=== PATIENT | female | born 2000 | race Caucasian/White ===

== ENCOUNTER → 2020-07-13 | Outpatient (CLI) | payer MEDICAID ==
[2020-07-13 12:34] LABS: BASOPHILS % (AUTO) 0 % (0-10); EOSINOPHILS # (AUTO) 0.1 10^3/uL (0.0-0.3); EOSINOPHILS % (AUTO) 1 % (0-10); HEMATOCRIT 35 % (35-52); HEMOGLOBIN 11.5 g/dL (11.5-16.0); LYMPHOCYTES # (AUTO) 1.6 10^3/uL (1.0-4.0); LYMPHOCYTES % (AUTO) 13 % (12-44); MEAN CORPUSCULAR HEMOGLOBIN 28 pg (25-34); MEAN CORPUSCULAR HGB CONC 33 g/dL (32-36); MEAN CORPUSCULAR VOLUME 84 fL (80-99); MEAN PLATELET VOLUME 12.2 fL (9.0-12.2); MONOCYTES # (AUTO) 0.6 10^3/uL (0.0-1.0); MONOCYTES % (AUTO) 5 % (0-12); NEUTROPHILS # (AUTO) 9.9 10^3/uL (1.8-7.8); NEUTROPHILS % (AUTO) 80 % (42-75); PLATELET COUNT 192 10^3/uL (130-400); WHITE BLOOD COUNT 12.4 10^3/uL (4.3-11.0)
[2020-07-13 12:53] LABS: ALANINE AMINOTRANSFERASE 7 U/L (0-55); ALBUMIN 3.3 GM/DL (3.2-4.5); ALKALINE PHOSPHATASE 150 U/L (40-136); BILIRUBIN,TOTAL 0.2 MG/DL (0.1-1.0); BUN/CREATININE RATIO 12; CALCIUM 8.8 MG/DL (8.5-10.1); CARBON DIOXIDE 18 MMOL/L (21-32); CHLORIDE 109 MMOL/L (98-107); CREATININE SERUM 0.67 MG/DL (0.60-1.30); GFR ESTIMATED > 60; GLUCOSE 111 MG/DL (70-105); POTASSIUM 3.8 MMOL/L (3.6-5.0); SODIUM 138 MMOL/L (135-145); TOTAL PROTEIN 6.4 GM/DL (6.4-8.2); URIC ACID 5.4 MG/DL (2.6-7.2)
== END ==
LOC: LAB 12:06
PROVIDERS: ATTEND Family Medicine
DX: O16.3 Unspecified maternal hypertension, third trimester (principal); Z3A.00 Weeks of gestation of pregnancy not specified
CPT/HCPCS: 36415; 80053; 82570; 83615; 84156; 84550; 85025

== ENCOUNTER → 2020-07-17 | Outpatient (CLI) | payer MEDICAID ==
[2020-07-17 12:43] LABS: BASOPHILS % (AUTO) 0 % (0-10); EOSINOPHILS # (AUTO) 0.2 10^3/uL (0.0-0.3); EOSINOPHILS % (AUTO) 1 % (0-10); HEMATOCRIT 34 % (35-52); LYMPHOCYTES % (AUTO) 16 % (12-44); MEAN CORPUSCULAR HEMOGLOBIN 27 pg (25-34); MEAN CORPUSCULAR HGB CONC 32 g/dL (32-36); MEAN CORPUSCULAR VOLUME 84 fL (80-99); MEAN PLATELET VOLUME 12.4 fL (9.0-12.2); MONOCYTES # (AUTO) 0.6 10^3/uL (0.0-1.0); MONOCYTES % (AUTO) 5 % (0-12); NEUTROPHILS # (AUTO) 9.6 10^3/uL (1.8-7.8); NEUTROPHILS % (AUTO) 77 % (42-75); PLATELET COUNT 218 10^3/uL (130-400); WHITE BLOOD COUNT 12.5 10^3/uL (4.3-11.0)
[2020-07-17 13:10] LABS: ALANINE AMINOTRANSFERASE 10 U/L (0-55); ALBUMIN 3.3 GM/DL (3.2-4.5); ALKALINE PHOSPHATASE 165 U/L (40-136); BILIRUBIN,TOTAL 0.3 MG/DL (0.1-1.0); BUN/CREATININE RATIO 12; CALCIUM 8.6 MG/DL (8.5-10.1); CARBON DIOXIDE 19 MMOL/L (21-32); CHLORIDE 107 MMOL/L (98-107); CREATININE SERUM 0.69 MG/DL (0.60-1.30); GFR ESTIMATED > 60; GLUCOSE 109 MG/DL (70-105); POTASSIUM 3.8 MMOL/L (3.6-5.0); SODIUM 135 MMOL/L (135-145); TOTAL PROTEIN 6.1 GM/DL (6.4-8.2); URIC ACID 5.3 MG/DL (2.6-7.2)
== END ==
LOC: LAB 12:13
PROVIDERS: ATTEND Family Medicine
DX: O16.3 Unspecified maternal hypertension, third trimester (principal); Z3A.00 Weeks of gestation of pregnancy not specified
CPT/HCPCS: 36415; 80053; 82570; 83615; 84156; 84550; 85025

== ENCOUNTER 2020-07-23 19:00 | Inpatient (IN) | payer OTHER, MEDICAID ==
[~2020-07-23] VITALS: Ht 172 cm; Wt 116.6 kg
[2020-07-23] MEDS ORDERED: AMPICILLIN FOR IV USE 2,000 MG in WATER (STERILE) FOR INJECTION 14.8 ML IV SCH (19:11)
[2020-07-23] MEDS ORDERED: MINERAL OIL CONCENTRATE 99.9% 15 ML UDC TOP PRN (19:15)
[2020-07-23] MEDS ORDERED: LACTATED RINGERS 1,000 ML IV SCH (19:15)
[2020-07-23] MEDS ORDERED: TERBUTALINE INJ 1 MG/ML (BRETHINE) AMP SC PRN (19:15)
[2020-07-23 19:30] VITALS: BP 137/64
[2020-07-23 20:03] LABS: BILIRUBIN,URINE NEGATIVE (NEGATIVE); CLARITY,URINE SL CLOUDY; COLOR,URINE AMBER; GLUCOSE, URINE (UA) NEGATIVE (NEGATIVE); KETONES,URINE TRACE (NEGATIVE); LEUKOCYTE ESTERASE ,URINE NEGATIVE (NEGATIVE); NITRITE,URINE NEGATIVE (NEGATIVE); PROTEIN,URINE 1+ (NEGATIVE)
[2020-07-23 20:04] LABS: BASOPHILS # (AUTO) 0.1 10^3/uL (0.0-0.1); BASOPHILS % (AUTO) 0 % (0-10); EOSINOPHILS # (AUTO) 0.2 10^3/uL (0.0-0.3); EOSINOPHILS % (AUTO) 1 % (0-10); HEMATOCRIT 33 % (35-52); HEMOGLOBIN 10.5 g/dL (11.5-16.0); LYMPHOCYTES # (AUTO) 2.3 10^3/uL (1.0-4.0); LYMPHOCYTES % (AUTO) 18 % (12-44); MEAN CORPUSCULAR HEMOGLOBIN 27 pg (25-34); MEAN CORPUSCULAR HGB CONC 32 g/dL (32-36); MEAN CORPUSCULAR VOLUME 83 fL (80-99); MEAN PLATELET VOLUME 12.1 fL (9.0-12.2); MONOCYTES # (AUTO) 0.7 10^3/uL (0.0-1.0); MONOCYTES % (AUTO) 5 % (0-12); NEUTROPHILS # (AUTO) 9.5 10^3/uL (1.8-7.8); NEUTROPHILS % (AUTO) 75 % (42-75); PLATELET COUNT 198 10^3/uL (130-400); WHITE BLOOD COUNT 12.8 10^3/uL (4.3-11.0)
[2020-07-23 20:27] LABS: ALANINE AMINOTRANSFERASE 10 U/L (0-55); ALBUMIN 3.2 GM/DL (3.2-4.5); ALKALINE PHOSPHATASE 169 U/L (40-136); BILIRUBIN,TOTAL 0.4 MG/DL (0.1-1.0); BUN/CREATININE RATIO 14; CALCIUM 8.5 MG/DL (8.5-10.1); CARBON DIOXIDE 19 MMOL/L (21-32); CHLORIDE 106 MMOL/L (98-107); CREATININE SERUM 0.66 MG/DL (0.60-1.30); GFR ESTIMATED > 60; GLUCOSE 71 MG/DL (70-105); POTASSIUM 3.6 MMOL/L (3.6-5.0); SODIUM 137 MMOL/L (135-145); TOTAL PROTEIN 6.2 GM/DL (6.4-8.2)
[2020-07-23 20:28] LABS: BACTERIA,URINE LARGE /HPF; SQUAMOUS EPITHELIAL CELL,UR 25-50 /HPF
[2020-07-23 20:45] VITALS: BP 123/59
[2020-07-23] MEDS: D5 LR IV SOLUTION 1,000 ML IV SCH (20:49)
[2020-07-23] MEDS: MISOPROSTOL 100 MCG (CYTOTEC) TAB PV PRN (20:50)
[2020-07-23 21:30] VITALS: BP 130/74
[2020-07-23] MEDS ORDERED: ZOLPIDEM 5 MG (AMBIEN) TAB ONE (21:33)
[2020-07-23] MEDS ORDERED: ZOLPIDEM 5 MG (AMBIEN) TAB PO ONE (21:45)
[2020-07-23] MEDS ORDERED: CATHETER FLUSH 10 ML SYR IV SCH (22:00)
[2020-07-23 22:48] VITALS: BP 137/64
[2020-07-23 23:00] VITALS: BP 104/61
[2020-07-24] VITALS (82 sets, daily range): BP systolic 103–169; BP diastolic 47–93
[2020-07-24] MEDS: AMPICILLIN FOR IV USE 1,000 MG in WATER (STERILE) FOR INJECTION 7.4 ML IV SCH ×5 (01:04→18:52)
[2020-07-24] MEDS: MISOPROSTOL 100 MCG (CYTOTEC) TAB PV PRN (01:05)
[2020-07-24] MEDS: D5 LR IV SOLUTION 1,000 ML IV SCH ×2 (04:01→12:09)
[2020-07-24] MEDS ORDERED: fentaNYL INJECTION 100 MCG/2 ML AMP ONE ×3 (05:41→21:20)
[2020-07-24] MEDS ORDERED: OXYTOCIN PRE-MIX DRIP 500 ML IV ONE (05:41)
[2020-07-24] MEDS ORDERED: OXYTOCIN PRE-MIX DRIP 500 ML IV SCH ×2 (05:45→22:45)
[2020-07-24] MEDS ORDERED: fentaNYL INJECTION 100 MCG/2 ML AMP IVP PRN (05:45)
--- NOTE | 2020-07-24 07:32 | History & Physical-OB/GYN ---
CASANDRADRE Trent MED STUDENT 07/24/20 0732: OB - Chief Complaint & HPI Date/Time Date of Admission: Date of Admission: Jul 23, 2020 at 19:02 Chief Complaint/History OB-Reason for Admission/Chief: Induction of Labor Hx : 1 Hx Para: 0 Hx Last Menstrual Period: 10/24/2019 Expected Date of Delivery: Jul 30, 2020 Gestational Age in Weeks: 39 Indication for induction: medical complication (gestational hypertension ) Admission Nurse Assessment Rev: Yes Allergies and Home Medications Allergies Coded Allergies: No Known Drug Allergies (Unverified , 07/17/20) Patient Home Medication List Home Medication List Reviewed: Yes ( vitamins) OB - History Hx of Present Care: Yes Ultrasounds: Normal mid trimester US Obstetrical Complications: Gestational Hypertension Other Concerns: GBS positive Syphilis in first trimester Tobacco use durring Information Induced Hypertension: Yes Maternal Gestational Diabetes: No Hemorrhage: No Obstetrical History Hx : 1 Hx Para: 0 Hx # Term Pregnancies: 0 Hx # Pregnancies: 0 Social History/Family History Alcohol Use: Past History (Used alcohol before she knew she was ) Recreational Drug Use: No Smoking Cessation: Current every day smoker (05/19 - ppd durring ) 2nd Hand Smoke Exposure: Yes Immunizations Date of Influenza Vaccine: Apr 30, 2020 Rubella: immune RPR/VDRL: Negative GBS Status: Positive HBsAG: Negative OB - Admission Exam Physical Exam Vitals: Vital Signs 07/23/20 07/24/20 07/24/20 22:48 06:00 06:45 Temp 36.2 Pulse 71 Resp 18 B/P (MAP) 123/69 (87) Pulse Ox 99 O2 Delivery Room Air HEENT: Eyes non-injected Abdomen: Gravid Extremities: Normal Cervical Dilatation: 2cm Effacement: 25% Membranes: Intact Heart Rate: 120's Accelerations: Accelerations Present Short Term Variability: Present Prison Variability: Average (6-25) Contractions on Admission: < 5 Minutes Apart Labs Laboratory Tests Test 07/23/20 19:40 Range/Units White Blood Count 12.8 H 4.3-11.0 10^3/uL Red Blood Count 3.93 3.80-5.11 10^6/uL Hemoglobin 10.5 L 11.5-16.0 g/dL Hematocrit 33 L 35-52 % Mean Corpuscular Volume 83 80-99 fL Mean Corpuscular Hemoglobin 27 25-34 pg Mean Corpuscular Hemoglobin Concent 32 32-36 g/dL Red Cell Distribution Width 13.6 10.0-14.5 % Platelet Count 198 130-400 10^3/uL Mean Platelet Volume 12.1 9.0-12.2 fL Immature Granulocyte % (Auto) 1 % Neutrophils (%) (Auto) 75 42-75 % Lymphocytes (%) (Auto) 18 12-44 % Monocytes (%) (Auto) 5 0-12 % Eosinophils (%) (Auto) 1 0-10 % Basophils (%) (Auto) 0 0-10 % Neutrophils # (Auto) 9.5 H 1.8-7.8 10^3/uL Lymphocytes # (Auto) 2.3 1.0-4.0 10^3/uL Monocytes # (Auto) 0.7 0.0-1.0 10^3/uL Eosinophils # (Auto) 0.2 0.0-0.3 10^3/uL Basophils # (Auto) 0.1 0.0-0.1 10^3/uL Immature Granulocyte # (Auto) 0.1 0.0-0.1 10^3/uL Urine Color CECY H Urine Clarity SL CLOUDY Urine pH 7.0 5-9 Urine Specific [place] 1.020 1.016-1.022 Urine Protein 1+ H NEGATIVE Urine Glucose (UA) NEGATIVE NEGATIVE Urine Ketones TRACE H NEGATIVE Urine Nitrite NEGATIVE NEGATIVE Urine Bilirubin NEGATIVE NEGATIVE Urine Urobilinogen 1.0 < = 1.0 MG/DL Urine Leukocyte Esterase NEGATIVE NEGATIVE Urine RBC (Auto) NEGATIVE NEGATIVE Urine RBC NONE /HPF Urine WBC 5-10 H /HPF Urine Squamous Epithelial Cells 25-50 H /HPF Urine Crystals NONE /LPF Urine Bacteria LARGE H /HPF Urine Casts NONE /LPF Urine Mucus NEGATIVE /LPF Urine Culture Indicated YES Urine Creatinine 195 H 30-125 MG/DL Urine Protein/Creatinine Ratio 0.14 Sodium Level 137 135-145 MMOL/L Potassium Level 3.6 3.6-5.0 MMOL/L Chloride Level 106 98-107 MMOL/L Carbon Dioxide Level 19 L 21-32 MMOL/L Anion Gap 12 5-14 MMOL/L Blood Urea Nitrogen 9 7-18 MG/DL Creatinine 0.66 0.60-1.30 MG/DL Estimat Glomerular Filtration Rate > 60 BUN/Creatinine Ratio 14 Glucose Level 71 70-105 MG/DL Uric Acid 5.0 2.6-7.2 MG/DL Calcium Level 8.5 8.5-10.1 MG/DL Corrected Calcium 9.1 8.5-10.1 MG/DL Total Bilirubin 0.4 0.1-1.0 MG/DL Aspartate Amino Transf (AST/SGOT) 12 5-34 U/L Alanine Aminotransferase (ALT/SGPT) 10 0-55 U/L Alkaline Phosphatase 169 H 40-136 U/L Lactate Dehydrogenase 154 125-220 U/L Total Protein 6.2 L 6.4-8.2 GM/DL Albumin 3.2 3.2-4.5 GM/DL OB - Assessment/Plan/Diagnosis Assessment Assessment: group B positive strep, induction of labor Admission Dx Induction of labor Admission Status: Inpatient Order (span 2 midnights) Reason for Inpatient Admission: Induction of labor due to gestational hypertension Plan Plan: Induction Induction Method: per Pitocin Protocol Other Plan Induction of labor for Geovanna 20 y/o F at 39 W 0D due to gestational hypertension. Mother is GBS positive, rubella immune, GC negative, and HIV negative. Significant events include being treated for syphilis in first trimester, smoking through , and abnormal penta screen. Maternal blood type is B+. Problems: (1) GBS (group B streptococcus) UTI complicating (2) Syphilis affecting in first trimester (3) Smoking (tobacco) complicating childbirth (4) Gestational hypertension Qualifiers: Qualified Codes: O13.3 - Gestational [-induced] hypertension without significant proteinuria, third trimester SATYA SCHWARTZ MD 07/24/20 0835: OB - Chief Complaint & HPI Date/Time Time Seen by a Provider: 07:50 Allergies and Home Medications Allergies Coded Allergies: No Known Drug Allergies (Unverified , 07/17/20) OB - History Patient Past Medical History PMHx: Heart murmur Supervisory-Addendum Brief Verification & Attestation Participated in pt care: history, MDM, physical Personally performed: exam, history Care discussed with: Medical Student Procedures: n/a I personally saw and examined patient and agree with documentation by MSThomas Flores. Pt had positive RPR at 1:16 with positive FTA abs on 12/25. Pt was treated with penicillin 2.4 million units with 4 doses (treated as latent due to no symptoms and unknown timing of acquisition), she received 4 doses due to the first two being more than 7 days apart and health department recommended fourth dose, so she had treatment on 12/30/19, 01/10/20, 01/17/20 and 01/24/20. Her significant other was also treated. She then had a repeat RPR earlier than recommended due to lab drawing with penta screen on 03/07/20 and was 1:8. On 07/09/20 at 6 month f/u testing, her RPR was 1:16, this was discussed with MFM and ID and they recommended growth US and repeat treatment due to difficulty determining whether the titer meant re-infection, failure of treatment or just persistent titer which may still resolve by 12 months. She was therefore treated with 2.4 million units of penicillin on 07/13/20 and 07/20/20, is due for final injection on 07/27/20. She did have normal anatomy ultrasound at 19w5d. Growth US on 07/13 showed heavily calcified placenta and appropriate growth with EFW 2985, 35%. BPP was done on 07/17 and showed EFW 3115, ZACH 9.7, 8/8. Unfortunately, she did have some limited care, was seen at 9, 15 and 19 weeks, and then was lost to follow up until 27 weeks when she had one visit and then was lost to follow up until 37 weeks gestation when she presented with GHTN and the above noted RPR titer. DRE FLORES MED STUDENT Jul 24, 2020 07:32 SATYA SCHWARTZ MD Jul 24, 2020 08:35
[2020-07-24] MEDS ORDERED: fentaNYL 2 mcg/ml BUPIVA 0.125 100 ML ONE (08:01)
[2020-07-24] MEDS: fentaNYL 2 mcg/ml BUPIVA 0.125 100 ML IV SCH ×2 (09:09→16:42)
[2020-07-24] MEDS ORDERED: NALOXONE 0.4 MG/ML 1 ML (NARCAN) VIAL IV PRN (15:00)
[2020-07-24] MEDS ORDERED: LACTATED RINGERS 1,000 ML IV ONE (15:00)
[2020-07-24] MEDS ORDERED: CATHETER FLUSH 10 ML SYR IV PRN (15:00)
[2020-07-24] MEDS ORDERED: ONDANSETRON 4 MG/2 ML (SDV) Z0FRAN ONE (18:45)
[2020-07-24] MEDS ORDERED: ONDANSETRON 4 MG/2 ML (SDV) Z0FRAN IVP PRN (19:00)
[2020-07-24] MEDS ORDERED: METOCLOPRAMIDE INJ 10 MG/2 ML (REGLAN) ONE (20:44)
[2020-07-24] MEDS ORDERED: ceFAZolin 2 GM IV Premixed 50 ML ONE ×2 (20:44→21:41)
[2020-07-24] MEDS ORDERED: AZITHROMYCIN INJECTION 500 MG/5 ML VIAL ONE (20:44)
[2020-07-24] MEDS ORDERED: CITRIC ACID/SOB CIT (BICITRA) 30 ML UDC ONE (20:44)
[2020-07-24] MEDS ORDERED: FAMOTIDINE 20MG/2ML IV (PEPCID) ONE (20:45)
[2020-07-24] MEDS ORDERED: NS (IVPB) 250 ML ONE (20:49)
[2020-07-24] MEDS ORDERED: AZITHROMYCIN INJECTION 500 MG in NS (IVPB) 250 ML IV ONE (21:00)
[2020-07-24] MEDS ORDERED: LACTATED RINGERS 1,000 ML IV PRN (21:00)
[2020-07-24] MEDS ORDERED: METOCLOPRAMIDE INJ 10 MG/2 ML (REGLAN) IV ONE (21:00)
[2020-07-24] MEDS ORDERED: CITRIC ACID/SOB CIT (BICITRA) 30 ML UDC PO ONE (21:00)
[2020-07-24] MEDS ORDERED: FAMOTIDINE 20MG/2ML IV (PEPCID) IV ONE (21:00)
[2020-07-24] MEDS: ceFAZolin 2 GM IV Premixed 50 ML IV ONE ×2 (21:10→21:47)
[2020-07-24] MEDS ORDERED: LIDOCAINE PF 2% 5 ML (XYLOCAINE) VIAL ONE (21:14)
[2020-07-24] MEDS ORDERED: OXYTOCIN PRE-MIX DRIP 1,000 ML IV ONE (21:17)
[2020-07-24] MEDS ORDERED: KETAMINE/NaCl 50 MG/5 ML SYRINGE (ED ONLY) ONE (21:45)
[2020-07-24] MEDS ORDERED: BUPIVACAINE 0.5% 30 ML (SENSORCAINE) VIAL ONE (21:51)
[2020-07-24] MEDS: KETOROLAC 30 MG/ML VIAL IV SCH (22:00)
[2020-07-24] MEDS ORDERED: KETOROLAC 30 MG/ML VIAL ONE (22:25)
--- NOTE | 2020-07-24 22:36 | Cesarean Section Operative ---
Procedure Procedure Note Pre-operative Diagnosis: Geovanna Martin is a 20 /Para 1 / 0, Gestational Age 39 1/7 week with gestational hypertension, failure to progress, history of syphilis Post-operative Diagnosis: same Procedure: primary low transverse section Physician: NAHID ROBERTS Transportation Broker: Jania Flores MS III Estimated blood loss: 500 mL Disposition: stable Findings: Viable male , Apgars 8/9, weight 6#6 ounces, intact placenta, 3vc, normal appearing uterus, tubes, and ovaries. Indications:Geovanna Martin is a 20 /Para 1 / 0,Gestational Age 39 1/7 week with gestational hypertension, failure to progress, history of syphilis Procedure Details: The patient was seen in pre-op and the procedure was discussed with the patient in full, including the risks, benefits, and alternatives. All questions were answered. The patient was taken to the operating room and a time out was performed, verifying patient and procedure. After spinal anesthesia was placed by our anesthesia colleagues, the patient was placed in the dorsal supine with leftward tilt for uterine displacement.~ Her abdomen was then prepped and draped in the typical sterile fashion. A Pfannenstiel skin incision was made using a scalpel and carried down through the underlying fascia. The fascia was incised in the midline and tented up using Celina clamps. On both the inferior and superior fascia side the rectus muscle was dissected off bluntly and sharply using Brown scissors. The peritoneum was identified and entered bluntly in the midline. This was then stretched laterally using manual strength. After entering the abdominal cavity and confirming lack of intraperitoneal adhesions, a large Osiel retractor was placed and the lower uterine segment was visualized. A bladder flap was created with the use of Metzenbaum scissors.~ A scalpel was utilized to make a low transverse uterine incision. Amniotomy was performed with an Allis clamp with return of clear fluid. The infant's head was grasped and brought to the level of the incision. Fundal pressure was applied and was delivered without difficulty. Mouth and nares were suctioned with bulb suction. After the umbilical cord was clamped and cut, the infant was handed off to the pediatric staff. A sample of cord blood was then obtained. The placenta was delivered intact via uterine massage. The uterus was exteriorized and cleared of all clots and debris. The uterine incision was closed using 0 Vicryl in a running locked fashion. A second imbricated layer was placed using 0 Vicryl in a running fashion as well. The uterus was flexed forward and the posterior rectouterine space was inspected and cleared of all clots and debris. Again the hysterotomy site was examined and hemostasis was observed. The bilateral tubes and ovaries appeared normal. The uterus was placed back into the abdominal cavity and abdominal gutters were cleared of all clots and debris. A final check of the uterine incision showed it to be hemostatic. The peritoneum was closed using 3-0 Vicryl in a running fashion. The fascia was closed with 0 Vicryl in a running fashion. The subcutaneous space was hemostatic, and irrigated. The subcutaneous space was closed with 3-0 Vicryl in several single interrupted stitches. The skin was then closed using 4-0 Monocryl in a running subcuticular fashion. The skin edges were reapproximated together and were hemostatic. A pressure dressing was applied. All sponge, lap and needle counts were correct at the end of the procedure per nursing. Vitals - Labs Vital Signs - I&O Vital Signs Date Time Temp Pulse Resp B/P (MAP) Pulse Ox O2 Delivery O2 Flow Rate FiO2 07/24/20 21:25 69 18 138/82 (100) 97 Room Air 07/24/20 21:10 36.2 67 18 140/77 (98) 100 Room Air 07/24/20 20:55 77 18 155/71 (99) 98 Room Air 07/24/20 20:40 76 18 126/71 (89) 98 Room Air 07/24/20 20:25 76 18 139/85 (103) 99 Room Air 07/24/20 20:10 68 18 140/86 (104) 100 Room Air 07/24/20 19:55 86 18 145/88 (107) 92 Room Air 07/24/20 19:40 74 18 143/93 (110) 100 Room Air 07/24/20 19:30 36.2 73 18 127/78 (94) 99 Room Air 07/24/20 18:57 79 18 112/56 (74) 99 Room Air 07/24/20 18:55 77 18 120/58 (78) 99 Room Air 07/24/20 18:40 75 18 158/65 (96) 99 Room Air 07/24/20 18:27 36.7 67 18 137/78 (97) 100 Room Air 07/24/20 18:12 67 18 135/62 (86) 100 Room Air 07/24/20 17:55 71 18 139/67 (91) 100 Room Air 07/24/20 17:40 75 18 140/77 (98) 100 Room Air 07/24/20 17:27 69 18 136/69 (91) 100 Room Air 07/24/20 17:11 68 18 144/67 (92) 100 Room Air 07/24/20 16:55 68 18 123/60 (81) 100 Room Air 07/24/20 16:40 76 18 129/60 (83) 100 Room Air 07/24/20 16:25 36.3 76 18 136/68 (90) 100 Room Air 07/24/20 16:11 71 18 130/77 (94) 100 Room Air 07/24/20 15:54 66 18 105/60 (75) 99 Room Air 07/24/20 15:40 66 18 140/65 (90) 97 Room Air 07/24/20 15:25 68 18 125/70 (88) 95 Room Air 07/24/20 15:11 63 18 118/66 (83) 96 Room Air 07/24/20 14:27 59 18 116/57 (76) 96 Room Air 07/24/20 14:10 61 18 119/58 (78) 96 Room Air 07/24/20 13:54 58 18 115/57 (76) 97 Room Air 07/24/20 13:46 69 18 115/58 (77) 99 Room Air 07/24/20 13:11 62 18 122/73 (89) 97 Room Air 07/24/20 12:55 74 18 137/77 (97) 98 Room Air 07/24/20 12:44 35.8 07/24/20 12:40 66 18 104/56 (72) 99 Room Air 07/24/20 12:25 66 18 109/73 (85) 100 Room Air 07/24/20 12:10 66 18 109/61 (77) 100 Room Air 07/24/20 11:55 71 18 114/57 (76) 98 Room Air 07/24/20 11:41 63 18 125/63 (83) 97 Room Air 07/24/20 11:25 68 18 113/60 (77) 98 Room Air 07/24/20 11:10 60 18 112/57 (75) 98 Room Air 07/24/20 10:56 68 18 121/70 (87) 99 Room Air 07/24/20 10:40 65 18 121/66 (84) 98 Room Air 07/24/20 10:24 68 18 113/64 (80) 99 Room Air 07/24/20 10:10 67 18 111/55 (73) 99 Room Air 07/24/20 09:55 63 18 103/50 (67) 97 Room Air 07/24/20 09:39 70 18 113/55 (74) 98 Room Air 07/24/20 09:38 36.0 07/24/20 09:35 88 18 116/58 (77) 98 Room Air 07/24/20 09:29 70 18 118/56 (76) 98 Room Air 07/24/20 09:25 71 18 121/58 (79) 98 Room Air 07/24/20 09:19 79 18 134/57 (82) 99 Room Air 07/24/20 09:13 75 18 123/56 (78) 98 Room Air 07/24/20 09:10 81 18 126/66 (86) 98 Room Air 07/24/20 09:08 84 18 126/60 (82) Room Air 07/24/20 09:04 76 18 122/59 (80) 97 Room Air 07/24/20 09:01 85 18 127/67 (87) Room Air 07/24/20 08:59 89 18 125/63 (83) 99 Room Air 07/24/20 08:56 95 18 127/70 (89) 93 Room Air 07/24/20 08:53 94 18 118/57 (77) 100 Room Air 07/24/20 08:49 95 18 134/76 (95) 98 Room Air 07/24/20 08:46 75 18 129/79 (96) Room Air 07/24/20 08:44 75 18 126/79 (95) 100 Room Air 07/24/20 08:40 66 18 124/72 (89) 100 Room Air 07/24/20 08:38 73 18 126/74 (91) 100 Room Air 07/24/20 08:30 36.7 07/24/20 08:04 76 18 111/53 (72) Room Air 07/24/20 07:50 67 18 124/59 (80) Room Air 07/24/20 07:46 71 18 126/59 (81) Room Air 07/24/20 07:21 69 18 136/66 (89) Room Air 07/24/20 07:05 69 18 118/50 (72) Room Air 07/24/20 06:45 71 18 123/69 (87) 07/24/20 06:00 36.2 70 18 130/63 (85) 07/24/20 05:00 70 18 130/63 (85) 07/24/20 04:15 71 18 125/64 (84) 07/24/20 04:00 71 18 169/80 (109) 07/24/20 03:00 66 18 120/69 (86) 07/24/20 02:00 74 18 125/58 (80) 07/24/20 01:00 36.3 71 18 122/71 (88) 07/23/20 23:00 77 18 104/61 (75) 07/23/20 22:48 36.5 93 18 99 Room Air Labs Microbiology 07/23/20 Urine Culture - Final, Complete NO GROWTH NAHID ROBERTS DO Jul 24, 2020 22:36
[2020-07-24] MEDS ORDERED: morphine INJ 4 MG/ML 1 ML (VIAL/SYRINGE) IVP PRN (22:45)
[2020-07-24] MEDS ORDERED: TETANUS,DIPTH,PERTUSS P/F (BOOSTRIX) 0.5 ML VIAL IM SCH (22:45)
[2020-07-25 00:07] VITALS: BP 130/72
[2020-07-25 04:10] VITALS: BP 117/57
[2020-07-25] MEDS: KETOROLAC 30 MG/ML VIAL IV SCH ×3 (04:14→16:05)
[2020-07-25] MEDS ORDERED: MILK OF MAGNESIA 400 MG/5 ML 30 ML UDC PO PRN (05:00)
[2020-07-25 05:57] LABS: BASOPHILS % (AUTO) 0 % (0-10); EOSINOPHILS # (AUTO) 0.1 10^3/uL (0.0-0.3); EOSINOPHILS % (AUTO) 1 % (0-10); HEMATOCRIT 27 % (35-52); HEMOGLOBIN 8.5 g/dL (11.5-16.0); LYMPHOCYTES # (AUTO) 1.4 10^3/uL (1.0-4.0); LYMPHOCYTES % (AUTO) 14 % (12-44); MEAN CORPUSCULAR HEMOGLOBIN 27 pg (25-34); MEAN CORPUSCULAR HGB CONC 32 g/dL (32-36); MEAN CORPUSCULAR VOLUME 84 fL (80-99); MONOCYTES # (AUTO) 0.7 10^3/uL (0.0-1.0); MONOCYTES % (AUTO) 7 % (0-12); NEUTROPHILS # (AUTO) 7.9 10^3/uL (1.8-7.8); NEUTROPHILS % (AUTO) 77 % (42-75); PLATELET COUNT 141 10^3/uL (130-400); WHITE BLOOD COUNT 10.2 10^3/uL (4.3-11.0)
[2020-07-25] MEDS ORDERED: CATHETER FLUSH 10 ML SYR IV SCH (06:00)
--- NOTE | 2020-07-25 07:37 | Anesthesia-Regional Post-Op ---
Regional Patient Condition Mental Status: Alert, Oriented x3 Circulation: Same as Pre-Op Headache: Absent Sensation: Full Recovery Motor Block: Absent Post Op Complications Complications None Follow Up Care/Instructions Patient Instructions None needed. Anesthesia/Patient Condition Patient is doing well, no complaints, stable vital signs, no apparent adverse anesthesia problems. No complications reported per nursing. UZAIR VILLA CRNA Jul 25, 2020 07:37
[2020-07-25] MEDS: MEASLES,MUMPS,RUBELLA 1 EA INJ SC SCH ×2 (08:01→10:25)
[2020-07-25] MEDS: DOCUSATE SODIUM 100 MG (COLACE) CAP PO SCH ×2 (08:59→20:43)
[2020-07-25] MEDS: FERROUS SULF 325 MG (IRON) TAB PO SCH (08:59)
[2020-07-25 09:25] VITALS: BP 129/59
[2020-07-25 14:24] VITALS: BP 120/58
[2020-07-25 18:11] VITALS: BP 126/62
--- NOTE | 2020-07-25 18:37 | Postpartum Progress Note ---
Post Op Post-operative Day #1 s/p PLTCS Subjective: Patient is without complaints. Ambulating, voiding after moralez removed. Tolerating a regular diet without nausea or vomiting. Normal lochia. Pain is well controlled with oral pain medications. Passing flatus. [] feeding. [] Objective: Vital Signs 07/25/20 18:11 Temp 36.6 Pulse 82 Resp 18 B/P (MAP) 126/62 (83) Pulse Ox 97 O2 Delivery Room Air Laboratory Tests Test 07/25/20 05:50 Range/Units White Blood Count 10.2 4.3-11.0 10^3/uL Red Blood Count 3.15 L 3.80-5.11 10^6/uL Hemoglobin 8.5 L 11.5-16.0 g/dL Hematocrit 27 L 35-52 % Mean Corpuscular Volume 84 80-99 fL Mean Corpuscular Hemoglobin 27 25-34 pg Mean Corpuscular Hemoglobin Concent 32 32-36 g/dL Red Cell Distribution Width 13.7 10.0-14.5 % Platelet Count 141 130-400 10^3/uL Mean Platelet Volume 12.0 9.0-12.2 fL Immature Granulocyte % (Auto) 0 % Neutrophils (%) (Auto) 77 H 42-75 % Lymphocytes (%) (Auto) 14 12-44 % Monocytes (%) (Auto) 7 0-12 % Eosinophils (%) (Auto) 1 0-10 % Basophils (%) (Auto) 0 0-10 % Neutrophils # (Auto) 7.9 H 1.8-7.8 10^3/uL Lymphocytes # (Auto) 1.4 1.0-4.0 10^3/uL Monocytes # (Auto) 0.7 0.0-1.0 10^3/uL Eosinophils # (Auto) 0.1 0.0-0.3 10^3/uL Basophils # (Auto) 0.0 0.0-0.1 10^3/uL Immature Granulocyte # (Auto) 0.0 0.0-0.1 10^3/uL Physical Exam: General - Alert and oriented, no apparent distress Abdomen - Soft, appropriately tender to palpation, non-distended, fundus firm at umbilicus Incision - clean, dry and intact; no erythema or induration, no drainage Extremities - no edema, negative Elizabeth's bilaterally Assessment: 1. post-operative day # 1, status post PLTCS Recovering well, hemodynamically stable 1. antepartum and Acute blood loss anemia 3. Gestational hypertension - BP are stable Plan: Routine post-operative care. Encourage breast feeding. Encourage ambulation. VTE prophylaxis: SCDs. Ferrous sulfate supplementation. Plan for discharge likely tomorrow. Vitals - Labs Vital Signs - I&O Vital Signs Date Time Temp Pulse Resp B/P (MAP) Pulse Ox O2 Delivery O2 Flow Rate FiO2 07/25/20 18:11 36.6 82 18 126/62 (83) 97 Room Air 07/25/20 14:24 36.9 78 18 120/58 (78) 96 Room Air 07/25/20 09:25 36.9 76 18 129/59 (82) 98 Room Air 07/25/20 04:10 36.5 73 18 117/57 (77) 96 Room Air 07/25/20 00:07 36.7 68 18 130/72 (91) 96 Room Air 07/24/20 23:38 36.7 57 16 126/76 (93) 100 Room Air 07/24/20 23:20 Room Air 07/24/20 23:20 36.4 18 126/68 (87) 100 Room Air 07/24/20 23:10 Room Air 07/24/20 23:10 18 132/67 (88) 100 Room Air 07/24/20 23:02 Room Air 07/24/20 23:00 18 124/63 (83) 100 Room Air 07/24/20 22:53 Room Air 07/24/20 22:50 18 129/60 (83) 100 Room Air 07/24/20 22:49 Room Air 07/24/20 22:40 18 125/47 (73) 100 Room Air 07/24/20 22:35 Room Air 07/24/20 22:35 36.6 12 121/63 (82) 100 Room Air 07/24/20 21:25 69 18 138/82 (100) 97 Room Air 07/24/20 21:10 36.2 67 18 140/77 (98) 100 Room Air 07/24/20 20:55 77 18 155/71 (99) 98 Room Air 07/24/20 20:40 76 18 126/71 (89) 98 Room Air 07/24/20 20:25 76 18 139/85 (103) 99 Room Air 07/24/20 20:10 68 18 140/86 (104) 100 Room Air 07/24/20 19:55 86 18 145/88 (107) 92 Room Air 07/24/20 19:40 74 18 143/93 (110) 100 Room Air 07/24/20 19:30 36.2 73 18 127/78 (94) 99 Room Air 07/24/20 18:57 79 18 112/56 (74) 99 Room Air 07/24/20 18:55 77 18 120/58 (78) 99 Room Air 07/24/20 18:40 75 18 158/65 (96) 99 Room Air I & O 07/25/20 07:00 Intake Total 1050 ml Output Total 1400 ml Balance -350 ml Labs Laboratory Tests 07/25/20 05:50: White Blood Count 10.2, Red Blood Count 3.15L, Hemoglobin 8.5L, Hematocrit 27L, Mean Corpuscular Volume 84, Mean Corpuscular Hemoglobin 27, Mean Corpuscular Hemoglobin Concent 32, Red Cell Distribution Width 13.7, Platelet Count 141, Mean Platelet Volume 12.0, Immature Granulocyte % (Auto) 0, Neutrophils (%) (Auto) 77H, Lymphocytes (%) (Auto) 14, Monocytes (%) (Auto) 7, Eosinophils (%) (Auto) 1, Basophils (%) (Auto) 0, Neutrophils # (Auto) 7.9H, Lymphocytes # (Auto) 1.4, Monocytes # (Auto) 0.7, Eosinophils # (Auto) 0.1, Basophils # (Auto) 0.0, Immature Granulocyte # (Auto) 0.0 Microbiology 07/23/20 Urine Culture - Final, Complete NO GROWTH NAHID ROBERTS DO Jul 25, 2020 18:37
[2020-07-25] MEDS: ACETAMINOPHEN 500 MG TAB (TYLENOL) PO SCH (20:43)
[2020-07-25 20:45] VITALS: BP 127/63
[2020-07-25] MEDS: IBUPROFEN 600 MG (MOTRIN) TAB PO SCH (23:21)
[2020-07-26 05:00] VITALS: BP 127/76
[2020-07-26] MEDS: IBUPROFEN 600 MG (MOTRIN) TAB PO SCH ×3 (05:05→18:04)
[2020-07-26] MEDS: ACETAMINOPHEN 500 MG TAB (TYLENOL) PO SCH ×5 (06:48→21:27)
[2020-07-26] MEDS: FERROUS SULF 325 MG (IRON) TAB PO SCH (08:34)
[2020-07-26] MEDS: DOCUSATE SODIUM 100 MG (COLACE) CAP PO SCH ×2 (08:34→21:36)
[2020-07-26 08:38] VITALS: BP 125/59
[2020-07-26 12:10] VITALS: BP 126/64
[2020-07-26 16:00] VITALS: BP 128/75
--- NOTE | 2020-07-26 18:04 | Postpartum Progress Note ---
Post Op Post-operative Day #1 s/p PLTCS Subjective: Patient is without complaints. Ambulating, voiding after moralez removed. Tolerating a regular diet without nausea or vomiting. Normal lochia. Pain is well controlled with oral pain medications. Passing flatus. bottle feeding Objective: 07/26/20 07/26/20 07/26/20 08:38 12:10 16:00 Temp 36.8 37.0 36.4 Pulse 75 77 71 Resp 18 18 18 B/P (MAP) 125/59 (81) 126/64 (84) 128/75 (92) Pulse Ox 98 98 99 O2 Delivery Room Air Room Air Room Air 07/26/20 00:00 Intake Total 1200 ml Output Total 200 ml Balance 1000 ml Physical Exam: General - Alert and oriented, no apparent distress Abdomen - Soft, appropriately tender to palpation, non-distended, fundus firm at umbilicus Incision - clean, dry and intact; no erythema or induration, no drainage Extremities - no edema, negative Elizabeth's bilaterally [] Assessment: [] post-operative day # [], status post []. Recovering well, hemodynamically stable Acute blood loss anemia [] Plan: Routine post-operative care. Encourage breast feeding. Encourage ambulation. VTE prophylaxis: SCDs. Ferrous sulfate supplementation. Plan for discharge [] Vitals - Labs Vital Signs - I&O Vital Signs Date Time Temp Pulse Resp B/P (MAP) Pulse Ox O2 Delivery O2 Flow Rate FiO2 07/26/20 16:00 36.4 71 18 128/75 (92) 99 Room Air 07/26/20 12:10 37.0 77 18 126/64 (84) 98 Room Air 07/26/20 08:38 36.8 75 18 125/59 (81) 98 Room Air 07/26/20 05:00 36.9 73 18 127/76 (93) Room Air 07/25/20 20:45 36.0 81 18 127/63 (84) 98 Room Air 07/25/20 18:11 36.6 82 18 126/62 (83) 97 Room Air I & O 07/26/20 07:00 Intake Total 1200 ml Output Total 200 ml Balance 1000 ml Labs Microbiology 07/23/20 Urine Culture - Final, Complete NO GROWTH NAHID ROBERTS DO Jul 26, 2020 18:04
[2020-07-26] MEDS ORDERED: IBUP-844 PO (18:07)
[2020-07-26] MEDS ORDERED: OXC5T PO (18:07)
[2020-07-26] MEDS ORDERED: MAGN400O7 PO (18:07)
[2020-07-26] MEDS ORDERED: FERR325T18 PO (18:07)
[2020-07-26] MEDS ORDERED: DCS100C PO (18:07)
[2020-07-26] MEDS ORDERED: ACET-93 PO (18:07)
--- NOTE | 2020-07-26 18:31 | Short Stay Summary ---
Discharge Summary Hospital Course Was the Problem List Reviewed?: Yes Problems/Dx: (1) GBS (group B streptococcus) UTI complicating Status: Resolved Qualifiers: Qualified Codes: O23.43 - Unspecified infection of urinary tract in , third trimester; B95.1 - Streptococcus, group b, as the cause of diseases classified elsewhere (2) Syphilis affecting in first trimester Status: Chronic (3) Smoking (tobacco) complicating childbirth Status: Chronic (4) Gestational hypertension Status: Acute Qualifiers: Qualified Codes: O13.3 - Gestational [-induced] hypertension without significant proteinuria, third trimester Final Diagnosis: failure to progress, OP presentation, anemia Hospital Course Date of Admission: Jul 23, 2020 at 19:02 Admission Diagnosis : Family Physician/Provider: Date of Discharge: 07/26/20 Discharge Diagnosis: [ ] Hospital Course: [ ] Labs and Pending Lab Test: Microbiology 07/23/20 Urine Culture - Final, Complete NO GROWTH Home Meds Active Milk of Magnesia (Magnesium Hydroxide) 400 Mg/5 Ml Oral.susp 30 Ml PO PRN PRN Dok (Docusate Sodium) 100 Mg Capsule 100 Mg PO BID Acetaminophen 500 Mg Tablet 1,000 Mg PO Q8HR Oxyir Tablet (Oxycodone HCl) 5 Mg Tab 5 Mg PO Q4HR PRN Ibu (Ibuprofen) 600 Mg Tablet 600 Mg PO Q6HR Ferrous Sulfate 325 Mg Tablet 325 Mg PO DAILY@0700 Discharge Instructions Discharge Diet: No Restrictions Discharge Physical Examination General Appearance: Alert HEENT: Atraumatic Respiratory: Clear to Auscultation, Normal Air Movement Cardiovascular: Regular Rate, Normal S1, Normal S2 Abdominal: Other (Inc C/D/I) Allergies: Coded Allergies: No Known Drug Allergies (Unverified , 07/17/20) Discharge Summary Date of Admission Jul 23, 2020 at 19:02 Date of Discharge Discharge Date: Jul 27, 2020 Consults/Procedures Procedures primary low transverse section Discharge Diagnosis (1) GBS (group B streptococcus) UTI complicating Status: Resolved Qualifiers: Qualified Codes: O23.43 - Unspecified infection of urinary tract in , third trimester; B95.1 - Streptococcus, group b, as the cause of diseases classified elsewhere (2) Syphilis affecting in first trimester Status: Chronic (3) Smoking (tobacco) complicating childbirth Status: Chronic (4) Gestational hypertension Status: Acute Qualifiers: Qualified Codes: O13.3 - Gestational [-induced] hypertension without significant proteinuria, third trimester (5) Delivery by section of full-term infant Status: Acute (6) Failure to progress in labor, delivered, current hospitalization Status: Resolved (7) Acute blood loss as cause of postoperative anemia Status: Chronic (8) Acute postoperative anemia due to expected blood loss Status: Chronic NAHID ROBERTS DO Jul 26, 2020 18:31
[2020-07-26 21:30] VITALS: BP 141/90
[2020-07-27] MEDS: IBUPROFEN 600 MG (MOTRIN) TAB PO SCH ×3 (02:34→10:14)
[2020-07-27 03:00] VITALS: BP 124/69
[2020-07-27 10:00] VITALS: BP 125/66
[2020-07-27] MEDS: FERROUS SULF 325 MG (IRON) TAB PO SCH (10:14)
[2020-07-27] MEDS: DOCUSATE SODIUM 100 MG (COLACE) CAP PO SCH (10:14)
[2020-07-27] MEDS: ACETAMINOPHEN 500 MG TAB (TYLENOL) PO SCH (10:15)
[2020-07-27 11:45] VITALS: BP 125/66
== END 2020-07-27 11:45 | disposition home or self-care (01) | DRG 787 ==
LOC: LDRP 19:02
PROVIDERS: ADMIT Family Medicine; ATTEND Family Medicine
PROC: 10D00Z1 Extraction of Products of Conception, Low, Open Approach (ICD-10-PCS; principal; 2020-07-25)
DX: O13.4 Gestational [pregnancy-induced] hypertension without significant proteinuria, complicating childbirth (principal); O98.12 Syphilis complicating childbirth; D62 Acute posthemorrhagic anemia; O98.82 Other maternal infectious and parasitic diseases complicating childbirth; Z3A.39 39 weeks gestation of pregnancy; Z37.0 Single live birth; O99.334 Smoking (tobacco) complicating childbirth; F17.210 Nicotine dependence, cigarettes, uncomplicated; A53.9 Syphilis, unspecified; O90.81 Anemia of the puerperium; O23.43 Unspecified infection of urinary tract in pregnancy, third trimester; B95.1 Streptococcus, group B, as the cause of diseases classified elsewhere; O62.0 Primary inadequate contractions
CPT/HCPCS: 36415; 80053; 81000; 82570; 83615; 84156; 84550; 85025; 86850; 86900; 86901; 87088; 87635; 90715; 94664